=== PATIENT | female | born 1990 | race Caucasian/White ===

== ENCOUNTER → 2018-07-28 12:44 | Outpatient (CLI) | payer OTHER, SELFPAY ==
--- NOTE | 2018-07-28 | DI.US.S_ITS ---
PROCEDURE: US PELVIC COMPLETE INDICATIONS: CRAMPING TECHNIQUE: Real-time scanning was performed of the pelvic organs, with image documentation. Additional endovaginal scanning was necessary due to incomplete visualization of the adnexal and endometrial structures by transabdominal scanning. COMPARISON: None. FINDINGS: Transabdominal scanning: Limited scanning through the kidneys shows no hydronephrosis. No pathologic free abdominal or pelvic fluid. Endovaginal scanning: Uterus: Uterus is normal in size at 9.1 x 4.4 x 6.0 cm. The endometrium measures 10.1 mm in combined thickness. Ovaries: Simple cyst involving the left ovary measuring 3.2 x 1.9 x 2.8 cm otherwise ovaries are normal bilaterally. IMPRESSION: Simple dominant physiologic cyst associated with the left ovary. Dictated by: Franck DUKE Interpreted: Shreya Trevizo MD on 07/28/2018 at 13:57 Approved by: Shreya Trevizo M.D. on 07/28/2018 at 16:59
== END ==
PROVIDERS: Family Provider Specialist; PCP Specialist
DX: N83.292 Other ovarian cyst, left side (principal); R10.2 Pelvic and perineal pain
CPT/HCPCS: 76856

== ENCOUNTER → 2019-01-05 12:17 | Outpatient (CLI) | payer OTHER, SELFPAY ==
--- NOTE | 2019-01-05 | DI.US.S_ITS ---
PROCEDURE: US OB >= 14 WEEKS FETUS INDICATIONS: 20 WEEK ANATOMICAL SURVEY OUTSIDE/PRIOR DATING DATA: Last menstrual period (LMP): 08/03/18 LMP-based estimated date of delivery (GARY): 05/10/19. First dating scan (date and location): 01/05/19 Estimated date of delivery (GARY) from first dating scan: 05/11/19. TECHNIQUE: Real-time scanning was performed of the fetus, with image documentation and biometric measurements. Endovaginal scanning: Not performed COMPARISON: None. FINDINGS: General: A single living intrauterine gestation is present. Presentation: Breech Placenta: Placental position is anterior, without previa. Amniotic fluid index: 12.3 cm, normal range is 5-24 cm. heart rate: 150 beats per minute. Maternal cervical canal: 4.4 cm long. Normal lower limit is 2.5 cm. biometrics: Biparietal diameter: 5.3 cm, 22 weeks, zero day. Head circumference: 19.6 cm, 21 weeks, 6 days. Abdominal circumference: 17.0 cm, 22 weeks, zero days Femur length: 3.7 cm, 21 weeks, 6 days. Estimated gestational age from initial scan: not applicable. Composite gestational age from present scan: 22 weeks zero day Estimated weight and percentile: 463 g, 33% Measurement variability for biometric dating: +/- 7 days from 14 weeks to 15 weeks 6 days gestation, +/- 10 days from 16 weeks to 21 weeks 6 days gestation, +/- 2 weeks from 22 weeks to 27 weeks 6 days gestation, +/- 3 weeks for 28 weeks gestation or later. weight reference: 4500 g or EFW >90/95% is considered macrosomia or large for gestational age. EFW <10% is small for gestational age. EFW 5% or less is considered intra-uterine growth restriction. Anatomic survey: Neuro: Ventricles are non-dilated at less than 10 mm. Cisterna magna is normal at 3-11 mm. Cerebellum is normal in size and morphology. Nuchal skin fold: Normal at less than 6 mm between 14-21 weeks gestational age. Face: Nose and lips, facial profile are not well seen on this study.. Spine: Not well-seen on this study. Heart: 4-chambered heart is present. Outflow tract is not well visualized on this study. Diaphragm: Diaphragm is intact. Stomach: Left-sided stomach is present. Kidneys: No hydronephrosis. Normal is less than 5 mm in 2nd trimester, less than 7 mm in 3rd trimester. Cord: 3-vessel cord has orthotopic insertion. Bladder: Normal in size. Extremities: All 4 extremities identified. IMPRESSION: 1. Single live intrauterine . Normal amount of amniotic fluid. 2. outflow tract, facial structures and transverse spine are not well evaluated on this study. Dictated by: Pete Montes M.D. on 01/05/2019 at 14:14 Approved by: Pete Montes M.D. on 01/05/2019 at 14:21
== END ==
PROVIDERS: Family Provider Psychologist; Visit Provider Registered Nurse
DX: Z36.89 Encounter for other specified antenatal screening (principal); Z3A.22 22 weeks gestation of pregnancy
CPT/HCPCS: 76811

== ENCOUNTER → 2019-03-11 10:12 | Outpatient (CLI) | payer OTHER, SELFPAY ==
--- NOTE | 2019-03-11 | DI.US.S_ITS ---
PROCEDURE: US OB FOLLOW UP INDICATIONS: RE-EVALUATE SPINE, HEART, FACE OUTSIDE/PRIOR DATING DATA: Last menstrual period (LMP): 08/03/18. LMP-based estimated date of delivery (GARY): 05/10/19. First dating scan (date and location): 01/05/19. Estimated date of delivery (GARY) from first dating scan: 05/11/19. TECHNIQUE: Real-time scanning was performed of the fetus, with image documentation. Endovaginal scanning: Not needed for this study COMPARISON: None. FINDINGS: A single living intrauterine gestation is present. Presentation: Vertex. heart rate: 150 beats per minute. Estimated gestational age from initial scan: 31 weeks 2 days. Completion of anatomic survey with visualization of the facial/lips/ORBIT area, spine, and ventricular outflow tracts. IMPRESSION: Completion of anatomic survey was successful. No anomalies suspected. Delivery date is projected to be centered on 05/11/19. Dictated by: Cameron Maldonado M.D. on 03/11/2019 at 12:15 Approved by: Cameron Maldonado M.D. on 03/11/2019 at 12:17
[2019-03-11 14:49] LABS: Add Manual Diff / Slide Review NO; Basophils Absolute Auto 0 /uL (0-100); Basophils Percent Auto 0.2 % (0-2); Eosinophils Absolute Auto 100 /uL (0-450); Eosinophils Percent Auto 0.6 % (2-4); Hematocrit 36.9 % (36-46); Hemoglobin 12.8 g/dL (12.0-16.0); Lymphocytes Absolute Auto 2100 /uL (1100-4500); Lymphocytes Percent Auto 16.2 % (25-40); Mean Corpuscular HGB Conc 34.9 % (30-36); Mean Corpuscular Volume 88.9 fL (80-100); Monocytes Absolute Auto 500 /uL (0-900); Monocytes Percent Auto 4.2 % (3-14); Neutrophils Absolute Auto 10300 /uL (1500-7000); Neutrophils Percent Auto 78.8 % (50-75); Platelet Count 253 X10^3/uL (150-400); Red Blood Cell Count 4.15 X10^6/uL (4.0-5.2); Red Cell Distribution Width 12.9 % (11.6-14.8); White Blood Cell Count 13.1 X10^3/uL (4.5-11.0)
[2019-03-11 14:57] LABS: GTT (PREG) 1 Hour PP 50gm Dose 133 mg/dL (76-139)
== END ==
DX: Z36.2 Encounter for other antenatal screening follow-up (principal); Z3A.31 31 weeks gestation of pregnancy
CPT/HCPCS: 36415; 76816; 82950; 85025

== ENCOUNTER → 2019-11-24 14:45 | Outpatient (CLI) | payer OTHER, SELFPAY ==
--- NOTE | 2019-11-24 14:47 | DI.US.S_ITS ---
PROCEDURE: US PELVIC COMPLETE INDICATIONS: LLQ PAIN TECHNIQUE: Real-time scanning was performed of the pelvic organs, with image documentation. Additional endovaginal scanning was necessary due to incomplete visualization of the adnexal and endometrial structures by transabdominal scanning. COMPARISON: None. FINDINGS: Transabdominal scanning: Limited scanning through the kidneys shows no hydronephrosis. No pathologic free abdominal or pelvic fluid. Endovaginal scanning: Uterus: Uterus is normal in size at 9.9 x 3.3 x 5.6 cm. The endometrium measures 4.0 mm in combined thickness. Echogenic punctate foci noted throughout the endometrium and cervix suggestive of retained hemorrhagic products. Posterior subserosal fibroid measuring up to 2.0 cm. Ovaries: Ovaries are normal bilaterally. No adnexal masses are seen. IMPRESSION: 1. No source for left lower quadrant pain identified. 2. Echogenic punctate foci throughout the endometrium and endocervical canal suggestive of retained hemorrhagic products. Dictated by: Franck Griggs [facility] Interpreted: Orly Leavitt MD on 11/24/2019 at 16:39 Approved by: Orly Leavitt M.D. on 11/24/2019 at 18:04
== END ==
PROVIDERS: Referring Provider Specialist; Visit Provider Specialist
DX: R10.32 Left lower quadrant pain (principal)
CPT/HCPCS: 76856

== ENCOUNTER → 2020-05-20 13:08 | Outpatient (CLI) | payer OTHER, SELFPAY ==
--- NOTE | 2020-05-20 13:09 | DI.US.S_ITS ---
LIMITED ULTRASOUND OF LEFT BREAST: 05/20/2020 CLINICAL: Palpable left breast lump. No prior exams were available for comparison. Color flow and real-time ultrasound of the left breast 7-9 o'clock region were performed. Jones scale images of the real-time examination were reviewed. No significant abnormalities were seen sonographically in the left breast. IMPRESSION: NEGATIVE There is no sonographic evidence of malignancy at the palpable abnormality. Exam findings were conveyed to the patient. Patient is advised to monitor for significant change. Recommend screening mammogram to commence at age 40. This exam was interpreted at Station ID: [id number]. Electronically Signed By: Kiko Ureña M.D. [place]/:05/20/2020 14:31:57 letter sent: Normal Exam Ultrasound BI-RADS: 1 Negative
== END ==
PROVIDERS: PCP Registered Nurse; Referring Provider Registered Nurse; Visit Provider Registered Nurse
DX: N63.20 Unspecified lump in the left breast, unspecified quadrant (principal); N64.4 Mastodynia
CPT/HCPCS: 76642

== ENCOUNTER → 2021-03-24 09:05 | Outpatient (CLI) | payer OTHER, SELFPAY ==
--- NOTE | 2021-03-24 | DI.US.S_ITS ---
PROCEDURE: US OB >= 14 WEEKS FETUS INDICATIONS: ANATOMY OUTSIDE/PRIOR DATING DATA: Last menstrual period (LMP): October 19, 2020. LMP-based estimated date of delivery (GARY): July 26, 2021. TECHNIQUE: Real-time scanning was performed of the fetus, with image documentation and biometric measurements. COMPARISON: [facility], OB >= 14 WEEKS FETUS, 01/05/2019, 12:32. FINDINGS: General: A single living intrauterine gestation is present. Presentation: Transverse. Placenta: Placental position is anterior , marginal. Amniotic fluid index: 10.6 cm, normal range is 5-24 cm. Single deepest vertical pocket is 4.2 cm. heart rate: 158 beats per minute. Maternal cervical canal: 8 cm long. Normal lower limit is 2.5 cm. biometrics: Biparietal diameter: 5.51 cm Head circumference: 20.8 cm Abdominal circumference: 17.3 cm Femur length: 4.2 cm Clinically estimated gestational age: 22 weeks, 2 days Composite gestational age from present scan: 22 weeks, 6 days Estimated weight and percentile: 539 g +/-80 g Anatomic survey: Neuro: Ventricles are non-dilated at less than 10 mm. Cisterna magna is normal at 3-11 mm. Cerebellum is normal in size and morphology. Nuchal skin fold: Normal at less than 6 mm between 14-21 weeks gestational age. Face: Nose and lips, facial profile are normal. Spine: No evidence for spina bifida. Heart: 4-chambered heart is present, with normal ventricular outflow tracts. Diaphragm: Diaphragm is intact. Stomach: Left-sided stomach is present. Kidneys: No hydronephrosis. Normal is less than 5 mm in 2nd trimester, less than 7 mm in 3rd trimester. Cord: 3-vessel cord has orthotopic insertion. Bladder: Normal in size. Extremities: All 4 extremities identified. IMPRESSION: 1. Single live intrauterine with ultrasound estimated gestational age of 22 weeks 6 days. 2. Anterior, marginal placenta. We strive to produce accurate, complete, and clear reports of imaging services. To assist us in improving patient care, this report was composed using standard report templates and voice recognition software. Therefore, it may contain abnormal punctuation, insertions and/or omissions. Occasional wrong-word or sound-alike substitutions may occur. Though we review the report and make efforts to correct it, we do recommend that the report be read carefully in proper context to recognize any text inaccuracies. Dictated by: John Williamson M.D. on 03/24/2021 at 10:36 Approved by: Marcelle Bird MD, PhD on 03/27/2021 at 9:36
== END ==
PROVIDERS: PCP Registered Nurse; Referring Provider Midwife; Visit Provider Midwife
DX: Z36.89 Encounter for other specified antenatal screening (principal); O44.22 Partial placenta previa NOS or without hemorrhage, second trimester; Z3A.22 22 weeks gestation of pregnancy
CPT/HCPCS: 76811

== ENCOUNTER → 2021-06-12 14:33 | Outpatient (CLI) | payer OTHER, SELFPAY ==
--- NOTE | 2021-06-12 | DI.US.S_ITS ---
PROCEDURE: US OB FOLLOW UP INDICATIONS: ANTERIOR MARGINAL PLACENTA/AMNIOTIC FLUID OUTSIDE/PRIOR DATING DATA: Last menstrual period (LMP): 10/19/2020. LMP-based estimated date of delivery (GARY): 07/26/2021. First dating scan (date and location): 03/24/2021. Estimated date of delivery (GARY) from first dating scan: 08/01/2021. TECHNIQUE: Real-time scanning was performed of the fetus, with image documentation and biometric measurements. COMPARISON: [facility], OB FOLLOW UP, 03/11/2019, 10:18. [facility], OB >= 14 WEEKS FETUS, 03/24/2021, 9:31. FINDINGS: General: A single living intrauterine gestation is present. Presentation: Vertex. Placenta: Placental position is anterior. No visualized previa. Amniotic fluid index: 10.7 cm, normal range is 5-24 cm. heart rate: 135 beats per minute. Maternal cervical canal: 4.5 cm long. Normal lower limit is 2.5 cm. biometrics: Composite gestational age from initial scan: 34 weeks 2 days IMPRESSION: Single live intrauterine . No visualized placental previa. We strive to produce accurate, complete, and clear reports of imaging services. To assist us in improving patient care, this report was composed using standard report templates and voice recognition software. Therefore, it may contain abnormal punctuation, insertions and/or omissions. Occasional wrong-word or sound-alike substitutions may occur. Though we review the report and make efforts to correct it, we do recommend that the report be read carefully in proper context to recognize any text inaccuracies. Dictated by: Orly Leavitt M.D. on 06/12/2021 at 17:12 Transcribed by: MATILDE on 06/12/2021 at 17:15 Approved by: Orly Leavitt M.D. on 06/13/2021 at 16:43
== END ==
PROVIDERS: PCP Registered Nurse; Referring Provider Midwife; Visit Provider Midwife
DX: Z36.2 Encounter for other antenatal screening follow-up (principal); Z3A.34 34 weeks gestation of pregnancy
CPT/HCPCS: 76816

== ENCOUNTER 2022-04-16 17:39 | Emergency (ER) | payer OTHER, SELFPAY ==
[2022-04-16 17:42] VITALS: BP 132/68; PULSE 71; RESP 18; TEMP 36.6; O2SAT 100; BMI 28.3
[2022-04-16 18:24] LABS: Add Manual Diff / Slide Review NO; Basophils Absolute Auto 100 /uL (0-100); Basophils Percent Auto 0.7 % (0-2); Eosinophils Absolute Auto 100 /uL (0-450); Eosinophils Percent Auto 1.5 % (2-4); Hematocrit 40.1 % (36-46); Hemoglobin 13.7 g/dL (12.0-16.0); Lymphocytes Absolute Auto 2600 /uL (1100-4500); Lymphocytes Percent Auto 33.8 % (25-40); Mean Corpuscular HGB Conc 34.1 % (30-36); Mean Corpuscular Hemoglobin 30.6 PG (26-34); Mean Corpuscular Volume 89.8 fL (80-100); Monocytes Absolute Auto 500 /uL (0-900); Monocytes Percent Auto 5.8 % (3-14); Neutrophils Absolute Auto 4500 /uL (1500-7000); Neutrophils Percent Auto 58.2 % (50-75); Platelet Count 256 X10^3/uL (150-400); Red Blood Cell Count 4.47 X10^6/uL (4.0-5.2); Red Cell Distribution Width 12.9 % (11.6-14.8); White Blood Cell Count 7.7 X10^3/uL (4.5-11.0)
[2022-04-16 18:43] LABS: Alanine Aminotransferase 18 IU/L (<35); Albumin 4.6 g/dL (3.5-5.0); Albumin Globulin Ratio 1.1 (1.0-2.8); Alkaline Phosphatase 58 U/L (38-126); Aspartate Aminotransferase 23 IU/L (14-36); BUN Creatinine Ratio 25.9 (6-22); Bilirubin Total 0.4 mg/dL (0.2-1.3); Blood Urea Nitrogen 14 mg/dL (7-17); Calcium 8.9 mg/dL (8.4-10.2); Carbon Dioxide 27 mmol/L (22-32); Chloride 99 mmol/L (98-107); Estimated Glomerular Filt Rate > 60 mL/min (>60); Globulin 4.1 g/dL (1.7-4.1); Glucose 97 mg/dL (70-100); HEMOLYSIS 22 (0-50); Lipase 112 U/L (23-300); Potassium 3.7 mmol/L (3.4-5.1); Sodium 139 mmol/L (137-145); Total Protein 8.7 g/dL (6.3-8.2)
== END 2022-04-16 21:23 | disposition left against medical advice (07) ==
PROVIDERS: Emergency Medicine; Emergency Provider Emergency Medicine
DX: R10.32 Left lower quadrant pain (principal)
CPT/HCPCS: 80053; 83690; 85025; 99281

== ENCOUNTER 2022-04-24 13:40 | Emergency (ER) | payer OTHER, SELFPAY ==
[2022-04-24 13:48] VITALS: BP 152/77; PULSE 88; RESP 16; TEMP 37.4; O2SAT 99; BMI 26.6
--- NOTE | 2022-04-24 13:55 | DI.US.S_ITS ---
PROCEDURE: US PELVIC COMPLETE INDICATIONS: LEFT LOWER QUADRANT PAIN TECHNIQUE: Real-time scanning was performed of the pelvic organs, with image documentation. Additional endovaginal scanning was necessary due to incomplete visualization of the adnexal and endometrial structures by transabdominal scanning. COMPARISON: [facility], , US PELVIC COMPLETE, 11/24/2019, 15:06. FINDINGS: Uterus: Uterus is anteverted and normal in size at 8.9 x 3.9 x 6.0 cm. The myometrium is homogeneous. The endometrium measures 4.6 mm combined thickness. Ovaries: Right ovary measures 2.3 x 13.1 x 1.7 cm, 6.0 cc. Normal echotexture and vascularity. Left ovary not visualized Other: No pathologic free abdominal or pelvic fluid. IMPRESSION: Nonvisualized left ovary. No free fluid or adnexal mass Approved by: Geoffrey Serrato M.D. on 04/24/2022 at 13:41
--- NOTE | 2022-04-24 18:29 | ED_ITS ---
HPI - Abdominal Pain General Chief Complaint: Abdominal Pain Stated Complaint: lower left abdominal pain Time Seen by Provider: 04/24/22 18:27 Source: patient Mode of arrival: Ambulatory History of Present Illness HPI narrative: 31-year-old female nonsmoker without chronic medical history presents for evaluation of ongoing left lower quadrant pain for the past month or so. She states that it has been slowly and gradually worsening and is made worse by motion and improves with rest. She denies any radiation of the pain. She states that it is sharp and stabbing when she moves. She denies any dizziness, weakness or lightheadedness. She is had no chest pain or shortness of breath. She denies nausea, vomiting or diarrhea. She denies dysuria, frequency or urgency. She is had no vaginal bleeding or discharge. She denies any trauma or injury. Related Data Home Medications Medication Instructions Recorded Confirmed No Known Home Medications 05/16/20 03/25/22 Allergies Allergy/AdvReac Type Severity Reaction Status Date / Time No Known Drug Allergies Allergy Verified 04/24/22 13:48 Review of Systems Review of Systems Narrative: GENERAL: Denies chills, fatigue, malaise, fever, sweats. HEENT: Denies sinus pain, ear pain, sore throat, difficulty swallowing, dizziness. RESPIRATORY: Denies dyspnea, cough, wheezing, hemoptysis, sputum. CARDIOVASCULAR: Denies chest pain, palpitations, orthopnea, edema, GASTROINTESTINAL: See HPI : see HPI MUSCULOSKELETAL: denies weakness, joint pain, or bony pain SKIN: Denies rash, skin lesions, or other NEUROLOGIC: Denies weakness, headache, numbness, change in speech, confusion, seizures, incoordination. PSYCHIATRIC: No concerning psychosocial issues. 12 point review of systems is negative except for those stated above Patient History Surgical History History of section Family History Grandfather Diabetes mellitus History of heart disease Social History Smoking Status: Never smoker Smoking Status: Never smoker alcohol intake frequency: holidays/special occasions only Substance Use Type: does not use Exam Narrative Exam Narrative: GENERAL: [31] year old patient appears stated age. Well-developed patient, in mild distress.Actively breast-feeding HEAD: Atraumatic. Normocephalic. EYES: Pupils equal round and reactive. Extraocular motions intact. No scleral icterus. No injection or drainage. ENT: Nose without bleeding, purulent drainage. Throat without erythema, tonsillar hypertrophy or exudate. Airway patent. NECK: Trachea midline. Non tender CARDIOVASCULAR: Regular rate and rhythm without murmurs, gallops, or rubs. RESPIRATORY: Clear to auscultation. Breath sounds equal bilaterally. No wheezes, rales, or rhonchi. GASTROINTESTINAL: Abdomen soft, mild left lower quadrant tenderness, nondistended. EXTREMITIES: No edema or joint tenderness. BACK: Nontender without deformity or crepitance. No flank tenderness. NEURO: AOx3. SKIN: No rash or erythema of visible areas Initial Vital Signs Initial Vital Signs: Vital Signs Temperature 99.3 F 04/24/22 13:48 Pulse Rate 88 04/24/22 13:48 Respiratory Rate 16 04/24/22 13:48 Blood Pressure 152/77 H 04/24/22 13:48 Pulse Oximetry 99 04/24/22 13:48 Oxygen Delivery Method 04/24/22 13:48 Course Orders Ordered: ED Orders 04/24/22 13:55 US pelvic complete Stat Vital Signs Vital signs: Vital Signs - 8 hr 04/24/22 18:52 04/24/22 18:55 Pulse Rate 74 Pulse Oximetry 99 97 Oxygen Delivery Method Room Air Room Air MDM - Abdominal Pain Lab Data Point of care testing: Point of Care Testing Test Results Negative Urine Dip Bedside Urine Glucose Negative Bedside Urine Bilirubin - Negative Bedside Urine Ketone - Negative Urine Specific Walker 1.005 Bedside Urine Occult Blood - Negative Bedside Urine pH 7.5 Bedside Urine Protein - Negative Bedside Urine Urobilinogen - Negative Bedside Urine Nitrite - Negative Bedside Urine Leukocytes - Negative Esterase Imaging Data US - 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 Procedure: US pelvic complete Ordering Provider: Dalton Jamil MD PROCEDURE:? US PELVIC COMPLETE ? INDICATIONS:? LEFT LOWER QUADRANT PAIN ? TECHNIQUE:? Real-time scanning was performed of the pelvic organs, with image documentation.? Additional endovaginal scanning was necessary due to incomplete visualization of the adnexal and endometrial structures by transabdominal scanning.? ? COMPARISON:? [facility], , PELVIC COMPLETE, 11/24/2019, 15:06. ? FINDINGS:? ?? Uterus:? Uterus is anteverted and normal in size at 8.9 x 3.9 x 6.0 cm. The myometrium is homogeneous. ? The endometrium measures 4.6 mm combined thickness.? ? Ovaries:? Right ovary measures 2.3 x 13.1 x 1.7 cm, 6.0 cc.? Normal echotexture and vascularity.? Left ovary not visualized ? Other:? No pathologic free abdominal or pelvic fluid. ? ? IMPRESSION:? Nonvisualized left ovary.? No free fluid or adnexal mass ? Approved by: Geoffrey Serrato M.D. on 04/24/2022 at 13:41? MDM Narrative Medical decision making narrative: CC: 31-year-old female with gradually worsening left lower quadrant pain over the past month or so in the absence of fever, chills, urinary complaints vaginal bleeding or discharge Complicating co-morbidities: none Data collected from: patient Medical records reviewed: including walk-in clinic and OB visits Differential considered, but not limited to: ovarian cyst, musculoskeletal, kidney stone, UTI versus other Exam documented above, pertinent findings include: mild left lower quadrant pain without erythema, warmth, induration or fluctuance, bowel sounds present, no rebound or guarding Lab Test results independently reviewed as above. Pertinent findings: no sign of UTI, no blood in urine Imaging studies independently reviewed: no significant abnormal findings on ultrasound, however left ovary unable to be completely visualized Discussion: patient with slowly worsening left lower quadrant pain over the past month in the absence of fever, vomiting, change in appetite, urinary compla ints, vaginal bleeding or discharge. Ultrasound unable to visualize ovary, however no fluid, mass or other abnormal findings noted. Urine demonstrates no sign of infection or blood. We did have a rather lengthy discussion at the bedside regarding the possibility of more thorough evaluation including CT given our inability to visualize ovary or gain in answer based on this evaluation. After that discussion of risks and benefit patient states she would prefer to not pursue a CT scan at this time given exposure to radiation. She understands that she may return immediately for any change in this opinion, she understands risks associated with stopping our evaluation now Disposition: see below, along with detailed discharge instructions that have been reviewed with patient as well as indications for ED re-evaluation and additional outpatient follow up Discharge Plan Departure Patient Disposition: Home Clinical Impression: LLQ abdominal pain Instructions: DI for Pelvic Pain Activity Restrictions/Additional Instructions: *You have been diagnosed with [left lower quadrant pain. As we discussed your history and physical exam are reassuring, urine shows no sign of infection or blood, ultrasound shows no significant abnormality but does not specifically visualized your left ovary.] *What to do: *Please continue to take your regular medications as directed. [ *Please follow up with Dr. Clinton (she is health education aide [facility] for sales and marketing coordinator), call for an appointment. Let them know you were seen in the Emergency Department and that we ask that you be seen in follow up. We will electronically transmit a record of today's note *Return to Emergency Department if you should have any new, worsening or concerning symptoms, such as [fever greater than 101 F, shaking chills, worsening pain, persistent vomiting or other bothersome symptoms] Prescriptions: No Action No Known Home Medications Referrals: Tiffanie Clinton MD [Physician] - Stand Alone Forms: Patient Portal/API
[2022-04-24 18:52] VITALS: O2SAT 99
[2022-04-24 18:55] VITALS: PULSE 74; O2SAT 97
== END 2022-04-24 18:56 | disposition home or self-care (01) ==
PROVIDERS: Emergency Provider Emergency Medicine
DX: R10.32 Left lower quadrant pain (principal)
CPT/HCPCS: 76830; 76856; 81003; 81025; 99282; 99283

== ENCOUNTER → 2023-02-13 14:27 | Outpatient (CLI) | payer OTHER, SELFPAY ==
--- NOTE | 2023-02-13 14:29 | DI.US.S_ITS ---
PROCEDURE: US OB >= 14 WEEKS FETUS INDICATIONS: 20WK ANATOMY SCAN OUTSIDE/PRIOR DATING DATA: Last menstrual period (LMP): 09/22/2022. LMP-based estimated date of delivery (GAYR): 06/29/2023. First dating scan (date and location): 11/09/2022. Estimated date of delivery (GARY) from first dating scan: 06/29/2023. The calculations are made using the ultrasound and working GARY of 06/29/2023. TECHNIQUE: Real-time scanning was performed of the fetus, with image documentation and biometric measurements. Endovaginal scanning: Not performed COMPARISON: [facility], , OB >= 14 WEEKS FETUS, 03/24/2021, 9:31. FINDINGS: General: A single living intrauterine gestation is present. Presentation: Vertex. Placenta: Placental position is anterior , without previa. Amniotic fluid index: 16.6 cm, normal range is 5-24 cm. Single deepest vertical pocket is 6.1 cm. heart rate: 168 beats per minute. Maternal cervical canal: 4.4 cm long. Normal lower limit is 2.5 cm. biometrics: Biparietal diameter: 4.9 cm, 20 weeks 5 days Head circumference: 18.2 cm, 20 weeks 4 days Abdominal circumference: 16.6 cm, 21 weeks 4 days Femur length: 3.6 cm, 21 weeks 2 days Clinically estimated gestational age: 20 weeks 4 days Composite gestational age from present scan: 21 weeks 0 days Estimated weight and percentile: 416 g, 84th percentile Anatomic survey: Neuro: Ventricles are non-dilated at less than 10 mm. Cisterna magna is normal at 3-11 mm. Cerebellum is normal in size and morphology. Nuchal skin fold: Normal at less than 6 mm between 14-21 weeks gestational age. Face: Nose and lips, facial profile are normal. Spine: No evidence for spina bifida. Heart: 4-chambered heart is present, with normal ventricular outflow tracts. Diaphragm: Diaphragm is intact. Stomach: Left-sided stomach is present. Kidneys: No hydronephrosis. Normal is less than 5 mm in 2nd trimester, less than 7 mm in 3rd trimester. Cord: 3-vessel cord has orthotopic insertion. Bladder: Normal in size. Extremities: All 4 extremities identified. IMPRESSION: Living 2nd trimester intrauterine with no sonographic evidence of complications. Current ultrasound age is 3 days greater. Normal 2nd trimester anatomy study. We strive to produce accurate, complete, and clear reports of imaging services. To assist us in improving patient care, this report was composed using standard report templates and voice recognition software. Therefore, it may contain abnormal punctuation, insertions and/or omissions. Occasional wrong-word or sound-alike substitutions may occur. Though we review the report and make efforts to correct it, we do recommend that the report be read carefully in proper context to recognize any text inaccuracies. Dictated by: Alberto Gomez M.D. on 02/13/2023 at 18:02 Approved by: Alberto Gomez M.D. on 02/13/2023 at 18:11
== END ==
PROVIDERS: Referring Provider Midwife; Visit Provider Midwife
DX: Z34.82 Encounter for supervision of other normal pregnancy, second trimester (principal); Z3A.21 21 weeks gestation of pregnancy
CPT/HCPCS: 76811